=== PATIENT | male | born 1935 | race Caucasian/White ===

== ENCOUNTER 2020-04-15 06:00 | Outpatient (RCR) | payer MEDICARE, SELFPAY | END 2020-04-28 23:59 | disposition home or self-care (01) | LOC: WPT 06:00 | PROVIDERS: PCP Family Medicine; Referring Provider Nurse Practitioner Family; Visit Provider Nurse Practitioner Family | DX: M84.312 Stress fracture, left shoulder (principal); X58.XXXD Exposure to other specified factors, subsequent encounter; R29.6 Repeated falls | CPT/HCPCS: 97110; 97163 ==

== ENCOUNTER 2020-04-29 06:00 | Outpatient (RCR) | payer MEDICARE, SELFPAY | END 2020-05-26 23:59 | disposition home or self-care (01) | LOC: WPT 06:00 | PROVIDERS: PCP Family Medicine; Referring Provider Nurse Practitioner Family; Visit Provider Nurse Practitioner Family | DX: Z91.81 History of falling (principal); M84.312 Stress fracture, left shoulder | CPT/HCPCS: 97110 ==

== ENCOUNTER → 2020-05-21 11:07 | Outpatient (BNVA) | payer MEDICARE, SELFPAY | PROVIDERS: PCP Nurse Practitioner Family; Visit Provider Internal Medicine | DX: M06.9 Rheumatoid arthritis, unspecified (principal); Z79.899 Other long term (current) drug therapy; Z11.1 Encounter for screening for respiratory tuberculosis; Z11.59 Encounter for screening for other viral diseases; Z87.891 Personal history of nicotine dependence | CPT/HCPCS: 80053; 85025; 86140; 86431; 86480; 86704; 86803; 87340; 99204; 99205 ==

== ENCOUNTER 2020-05-27 06:00 | Outpatient (RCR) | payer MEDICARE, SELFPAY | END 2020-06-26 23:59 | disposition home or self-care (01) | LOC: WPT 06:00 | PROVIDERS: PCP Nurse Practitioner Family; Referring Provider Nurse Practitioner Family; Visit Provider Nurse Practitioner Family | DX: S42.90XD Fracture of unspecified shoulder girdle, part unspecified, subsequent encounter for fracture with routine healing (principal); X58.XXXD Exposure to other specified factors, subsequent encounter; Z91.81 History of falling | CPT/HCPCS: 97110 ==

== ENCOUNTER → 2020-10-16 12:59 | Outpatient (BNVA) | payer MEDICARE, SELFPAY | PROVIDERS: PCP Nurse Practitioner Family; Visit Provider Internal Medicine | DX: M06.9 Rheumatoid arthritis, unspecified (principal); Z79.899 Other long term (current) drug therapy | CPT/HCPCS: 36415; 71046; 73030; 73120; 80053; 85025; 85651; 86140; 99213 ==

== ENCOUNTER 2020-10-16 14:08 | Outpatient (CLI) | payer MEDICARE, SELFPAY ==
--- NOTE | 2020-10-16 14:14 | XR_ITS ---
WS: [id number] Right hand, 2 views, 10/16/2020 Clinical Data: Z79.899 - Other jail (current) drug therapy Comparison: None. Findings: No fractures or dislocations are seen. The soft tissues are unremarkable. Osteoarthritic change of the MCP joints, PIP and DIP joints is moderate to severe. There is osteoarthritis at the ba se of the right first metacarpal. There is osteoarthritic change at the radiocarpal articulations wit h the proximal carpal bones. 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
--- NOTE | 2020-10-16 14:14 | XR_ITS ---
WS: [id number] Left shoulder, 2 views, 10/16/2020 Clinical Data: Z79.899 - Other halfway (current) drug therapy Comparison: None. Findings: No new fractures or dislocations are seen. There is an old healed fracture of the neck of the left hu merus and distal left clavicle. There is osteoarthritic change of the glenohumeral joint. Old left ri b fractures are noted. The AC joint is normal. The adjacent left clavicle, left scapula and ribs are normal. The soft tissues are unremarkable. There is a small recording device overlying the left hilum. XR/XR shoulder LT min 2V* [id number] Impression: Old fractures of the proximal left humerus, distal left clavicle and left later al ribs.
--- NOTE | 2020-10-16 14:14 | XR_ITS ---
WS: [id number] Left hand, 2 views, 10/16/2020 Clinical Data: Z79.899 - Other assisted (current) drug therapy Comparison: None. Findings: No fractures or dislocations are seen. The soft tissues are unremarkable. There is osteoarthritis of the MCP joints, PIP and DIP joints. Small cysts of the heads of the second through fifth metacarpals, heads of the second through fifth proximal phalanges and second through fourth middle phalanges of t he left hand. There is osteoarthritis at the radiocarpal articulation with the proximal row of carpal bones. 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
--- NOTE | 2020-10-16 14:14 | XR_ITS ---
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 Findings: No nodules, masses or effusions are seen. The heart is normal. The pulmonary vascularity is not increased. No pneumonia or pneumothorax is seen. The aortic arch and descending aorta are tortuo us. There is a recording device overlying the arch of the aorta. There are old fractures of the dista l left clavicle, left humeral head and left lateral ribs. XR/XR chest 2V* [id number] Impression: Atherosclerosis.
== END 2020-10-16 14:09 | disposition home or self-care (01) ==
PROVIDERS: PCP Nurse Practitioner Family; Visit Provider Internal Medicine
DX: Z79.899 Other long term (current) drug therapy (principal)
CPT/HCPCS: 36415; 71046; 73030; 73120; 80053; 85025; 85651; 86140

== ENCOUNTER 2020-12-13 06:00 | Outpatient (RCR) | payer MEDICARE, SELFPAY | END 2020-12-26 23:59 | disposition home or self-care (01) | LOC: WPT 06:00 | PROVIDERS: PCP Nurse Practitioner Family; Referring Provider Nurse Practitioner Family; Visit Provider Nurse Practitioner Family | DX: M19.012 Primary osteoarthritis, left shoulder (principal) | CPT/HCPCS: 97110; 97162; 97530 ==

== ENCOUNTER 2020-12-27 06:00 | Outpatient (RCR) | payer MEDICARE, SELFPAY | END 2021-01-26 23:59 | disposition home or self-care (01) | LOC: WPT 06:00 | PROVIDERS: PCP Nurse Practitioner Family; Referring Provider Nurse Practitioner Family; Visit Provider Nurse Practitioner Family | DX: M19.012 Primary osteoarthritis, left shoulder (principal) | CPT/HCPCS: 97110; 97140; 97530 ==

== ENCOUNTER → 2021-01-08 09:24 | Outpatient (BNVA) | payer MEDICARE, SELFPAY | PROVIDERS: PCP Nurse Practitioner Family; Visit Provider Internal Medicine | DX: M06.9 Rheumatoid arthritis, unspecified (principal); Z79.899 Other long term (current) drug therapy; Z87.891 Personal history of nicotine dependence | CPT/HCPCS: 36415; 80053; 85025; 85651; 86140; 99214 ==

== ENCOUNTER 2021-01-27 06:00 | Outpatient (RCR) | payer MEDICARE, SELFPAY | END 2021-02-25 23:59 | disposition home or self-care (01) | LOC: WPT 06:00 | PROVIDERS: PCP Nurse Practitioner Family; Visit Provider Nurse Practitioner Family | DX: M19.012 Primary osteoarthritis, left shoulder (principal) | CPT/HCPCS: 97110; 97140; 97530 ==

== ENCOUNTER → 2021-02-24 08:49 | Outpatient (BNVA) | payer MEDICARE, SELFPAY | PROVIDERS: PCP Nurse Practitioner Family; Visit Provider Family Medicine | DX: R30.0 Dysuria (principal) | CPT/HCPCS: 81000 ==

== ENCOUNTER → 2021-04-29 14:14 | Outpatient (BNVA) | payer MEDICARE, SELFPAY | PROVIDERS: PCP Nurse Practitioner Family; Visit Provider Internal Medicine | DX: M06.9 Rheumatoid arthritis, unspecified (principal); Z79.899 Other long term (current) drug therapy; Z87.891 Personal history of nicotine dependence | CPT/HCPCS: 99213; 99214 ==

== ENCOUNTER → 2021-08-20 13:37 | Outpatient (BNVA) | payer MEDICARE, SELFPAY | PROVIDERS: PCP Nurse Practitioner; Visit Provider Nurse Practitioner Family | DX: R82.998 Other abnormal findings in urine (principal); G47.00 Insomnia, unspecified; M79.89 Other specified soft tissue disorders | CPT/HCPCS: 81000 ==

== ENCOUNTER → 2021-09-04 09:14 | Outpatient (BNVA) | payer MEDICARE, SELFPAY | PROVIDERS: PCP Nurse Practitioner; Visit Provider Internal Medicine Pulmonary Disease | DX: J44.9 Chronic obstructive pulmonary disease, unspecified (principal); M06.9 Rheumatoid arthritis, unspecified; Z87.891 Personal history of nicotine dependence; I10 Essential (primary) hypertension | CPT/HCPCS: 99204 ==